=== PATIENT | male | born 1960 | race Caucasian/White ===

== ENCOUNTER 2023-05-30 12:40 | Emergency (ER) | payer MEDICARE, SELFPAY ==
[2023-05-30 12:41] VITALS: BP 150/78; PULSE 78; RESP 14; TEMP 36.4; O2SAT 98; BMI 25.2
--- NOTE | 2023-05-30 12:47 | CT_ITS ---
INDICATION: fall EXAMINATION: CT CERVICAL SPINE - CT Spine Cervical W/O Contrast Injection TECHNIQUE: Helically acquired images were obtained of the cervical spine. 2D reformatted images were reviewed. A radiation dose optimization technique was used for this scan. IV Contrast dosage and agent: None. RADIATION DOSAGE (If Supplied By Facility): CTDIvol = ( 27.56 ) mGy, DLP = ( 1040.6 ) mGycm COMPARISON: No relevant prior comparison study available FINDINGS: VERTEBRAE: No fracture or traumatic subluxation. No discrete lytic or blastic abnormality. Straightening of the cervical spine. Alignment of the vertebral bodies is unremarkable. Normal craniocervical junction and cervicothoracic junction. DISCS and SPINAL CANAL: Disc heights are preserved. No critical stenosis. NECK SOFT TISSUES: No prevertebral soft tissue swelling. Atherosclerotic calcifications of the carotid arteries. Partially visualized median sternotomy. LUNG APICES: Clear. CT/Spine Cervical without Contras IMPRESSION: 1. No evidence of acute cervical spinal fracture or spondylolisthesis. 2. Straightening of the cervical spine which could be due to muscle spasm. Electronically Signed: Edwin Santiago MD at 13:34 EDT ,
--- NOTE | 2023-05-30 12:47 | CT_ITS ---
INDICATION: fall EXAMINATION: CT BRAIN - CT Head or Brain W/O Contrast Injection TECHNIQUE: Multiple axial images were obtained of the head without intravenous contrast. A radiation dose optimization technique was used for this scan. IV Contrast dosage and agent: None. RADIATION DOSAGE (If Supplied By Facility): CTDIvol = ( 44.99 ) mGy, DLP = ( 762.36 ) mGycm COMPARISON: No relevant prior comparison study available FINDINGS: BRAIN PARENCHYMA: No intra- or extra-axial hemorrhage. No evidence of acute infarct. No intracranial mass or mass effect. There is preservation of the florence/white matter interface. Posterior fossa structures are unremarkable. Atherosclerotic calcifications of the cavernous internal carotid arteries. CSF SPACES: Mild atrophy. No hydrocephalus. Basal cisterns are patent. CALVARIUM, SKULL BASE, PARANASAL SINUSES AND MASTOID AIR CELLS: Clear. Small sclerotic lesion in the anterior clivus likely due to bone island. ORBITS: Both globes, extraocular muscles, optic nerves and retrobulbar fat appear unremarkable. CT/Brain/Head without Contrast IMPRESSION: No acute intracranial process. Electronically Signed: Edwin Santiago MD at 13:27 EDT ,
--- NOTE | 2023-05-30 13:30 | EX.ED.GENINJ ---
HPI History of Present Illness Chief Complaint: Head Injury Informant: patient Narrative Narrative: Presents by private vehicle fall out of a tree shortly prior to arrival. He was picking apples, 5 to 6 foot up, falling down into the bed of his truck. His head on the propane tank. No loss of consciousness. Reports headache however no nausea or vomiting. Denies any anticoagulation medicines. Last tetanus was a year ago. Mild neck pain. No extremity pain. He ambulated in department. No chest pains or shortness of breath. Tetanus Immunization: <5 years PFSH PFS Allergy/AdvReac Type Severity Reaction Status Date / Time No Known Allergies Allergy Verified 05/30/23 12:47 Social History Smoking Status: Never smoker ROS ROS ED Constitutional Constitutional ED: Denies chills, fever(s) or sweats Eyes Eyes: Denies change in vision ENT ENT ED: Denies dysphagia or sore throat Cardiovascular Cardiovascular: Denies chest pain, leg edema, palpitations or racing heartbeat Respiratory/Chest Respiratory/Chest: Denies cough, dyspnea or dyspnea on exertion Gastrointestinal Gastrointestinal: Denies abdominal pain, diarrhea, nausea or vomiting Genitourinary Genitourinary ED: Denies dysuria, hematuria or urinary frequency Musculoskeletal Musculoskeletal: Reports neck pain; Denies back pain or extremity pain Integumentary Reports wounds; Denies rash Neurologic Neurologic: Reports headache(s); Denies paresthesias or weakness EXAM Physical Exam Const Vital Signs: 05/30/23 12:41 05/30/23 13:53 05/30/23 14:00 Temperature 97.6 F L Temperature Source Temporal Pulse Rate 78 Respiratory Rate 14 18 Respiratory Effort Normal Non-Labored Respiratory Depth Normal Respiratory Pattern Normal Blood Pressure 150/78 H Blood Pressure Mean 102 Pulse Ox 98 97 Oxygen Delivery Method Room Air Room Air 05/30/23 15:00 Temperature Temperature Source Pulse Rate Respiratory Rate 18 Respiratory Effort Respiratory Depth Respiratory Pattern Blood Pressure Blood Pressure Mean Pulse Ox Oxygen Delivery Method Positive well nourished and well developed Constitutional Narrative: GCS 15, c-collar placed in triage dressing to the scalp. General Appearance ED: well developed and NAD HEENT Reports moist mucous membranes HEENT Narrative: Stellate laceration 4 cm x 2 cm noted posterior scalp, no active bleeding. No hemotympanum. normocephalic Eyes PERRL, EOMs intact bilaterally and conjunctivae normal General Eye ED: Yes normal appearance of both eyes Neck no lymphadenopathy and supple Neck Narrative: C-collar, mild midline tenderness mid C-spine no step-offs. General: Negative for tenderness Chest Wall inspection of chest normal and palpation of chest normal Chest: Negative for tenderness Resp normal respiratory effort and normal air movement Resp Narrative: Symmetric breath sounds. Effort and Inspection: symmetric chest movement; Negative for respiratory distress Cardio regular rate, regular rhythm and no murmurs Peripheral Pulses: pulses 2+ throughout GI normal to inspection, nondistended, normoactive bowel sounds and non-tender Palpation: Negative for guarding or rebound tenderness present Back/Spine no CVA tenderness Back/Spine Narrative: Superficial abrasion to the mid back skin was intact. No step-offs. Extremity normal to inspection General Extremety ED: Negative for edema or tenderness General Extremity: Negative for edema Neuro oriented x3, CN's II-XII intact bilaterally and no sensory deficits noted Sensorium / Orientation: awake and alert Skin no rashes or lesions noted and no wounds MDM MDM MDM Narrative Medical decision making narrative: Interventions / MDM: Differential diagnosis: Closed head injury, concussion, scalp laceration. Diagnosis considered but do not suspect: Intracranial hemorrhage/fracture however images are negative. My EKG interpretation: N/A Imaging independently reviewed and interpreted by myself: CT head and neck: No fracture, no intracranial hemorrhage. External documents reviewed: N/A Test considered but not ordered:N/A ED course: Mechanical fall with head injury. No focal deficits. Trauma scans head and neck were ordered patient maintained in c-collar. Trauma scans were negative c-collar cleared. Laceration was repaired, wound care discussed. Discussed using Tylenol as needed 1 dose was given in the ED. Outpatient follow-up with his PCP for which he states is getting established Dr. Brar. Patient ambulating in the department no difficulties. Return precautions. All questions were answered. Procedure note: Verbal consent. Normal sterile conditions. 3 cc 1% lidocaine used for local analgesia scalp. Due to stellate laceration, corner stitch was initially placed in the middle using 4-0 nylon sutures. Additional quarter stitch was required due to being pulled through. Additional 5 simple interrupted sutures placed with good approximation of the wound. Total of 7 sutures were placed. Hemostasis achieved. Patient tolerated the procedure well. Re-evaluation: stable Disposition discussed with patient/family/significant other: Patient Case discussed with consulting clinician: N/A This note was generated with [employer] dictation software. It may contain incorrect words, spelling, and punctuation that were not noted in checking the note before signing. Radiography Diagnostic Testing: Clinical Impression(s) from Imaging Studies Brain CT 05/30/23 12:47 IMPRESSION: No acute intracranial process. Electronically Signed: Edwin Santiago MD at 13:27 EDT , Cervical Spine CT 05/30/23 12:47 IMPRESSION: 1. No evidence of acute cervical spinal fracture or spondylolisthesis. 2. Straightening of the cervical spine which could be due to muscle spasm. Electronically Signed: Edwin Santiago MD at 13:34 EDT , Discharge Plan Triage Chief Complaint: Head Injury ED Provider: Kael Ojeda Dx/Rx/DC Orders Clinical Impression: Closed head injury, Fall, Laceration of scalp Instructions: ED Head Injury (Adult), ED Laceration Scalp Stitches or [place] Primary Care Provider: Care Physician,No Primary Referrals: Deepika Brar, DO [Non-Staff] - 10-14 Days suture removal Care Physician,No Primary [Primary Care Provider] - Activity Restrictions/Additional Instructions: CT head and neck negative. Total of 7 sutures were placed to your scalp, 2 in the middle were corner sutures. Wound care as discussed. Follow-up in 10 to 14 days for reevaluation and suture removal. Disposition Disposition: Home, Self Care Discharge Date/Time: 05/30/23 15:11
[2023-05-30] MEDS: Acetaminophen 500 MG Tablet 1000 MG PO (13:35)
[2023-05-30] MEDS: Lidocaine 1% (20 ml mdv) 20 ML Vial INFILT (13:35)
[2023-05-30 13:53] VITALS: O2SAT 97
[2023-05-30 14:00] VITALS: RESP 18
[2023-05-30 15:00] VITALS: RESP 18
== END 2023-05-30 15:11 | disposition home or self-care (01) ==
PROVIDERS: Emergency Provider Emergency Medicine; Visit Provider Emergency Medicine
DX: S01.01XA Laceration without foreign body of scalp, initial encounter (principal); W14.XXXA Fall from tree, initial encounter; Y93.89 Activity, other specified
CPT/HCPCS: 12002; 70450; 72125; 99282

== ENCOUNTER → 2024-12-16 | Outpatient (CLI) | payer MEDICARE, SELFPAY ==
--- NOTE | 2024-12-16 15:09 | RAD_ITS ---
PROCEDURE: CHEST PA AND LATERAL 12/16/2024 REASON FOR EXAM: CAD TECHNIQUE: Frontal and lateral views of the chest. COMPARISON: None. FINDINGS: The heart is normal in size. 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 There is no pneumothorax. There is pulmonary nodules present measuring up to 3-4 mm within the right midlung zone. There are no acute osseous abnormalities present. RAD/Chest PA and Lateral IMPRESSION: 3-4 mm nodule seen within the right midlung zone. No evidence of pneumothorax. Reading Location: [id number]
== END | disposition home or self-care (01) ==
PROVIDERS: PCP Family Medicine; Referring Provider Internal Medicine Cardiovascular Disease; Visit Provider Internal Medicine Cardiovascular Disease
DX: Z95.1 Presence of aortocoronary bypass graft (principal)
CPT/HCPCS: 71046

== ENCOUNTER → 2024-12-31 | Outpatient (CLI) | payer MEDICARE, SELFPAY ==
--- NOTE | 2024-12-31 18:37 | CT_ITS ---
PROCEDURE: CHEST WITHOUT CONTRAST 01/01/2025 REASON FOR EXAM: ABNORMAL CHEST XRAY TECHNIQUE: Chest CT without contrast. Coronal and Sagittal reconstruction series were provided. One or more dose reduction techniques were used (e.g., Automated exposure control, adjustment of the mA and/or kV according to patient size, use of iterative reconstruction technique RADIATION DOSE SUMMARY: CTDlvol: mGy DLP: mGycm COMPARISON: 12-16-2024 CR FINDINGS: Calcified right pulmonary nodules and right hilar lymph nodes, possibly granulomatous. No obvious pulmonary masses, consolidations or cavitary changes. The heart size is within normal. Vascular atheromatous calcifications. Sternotomy suture wires. No pleural or pericardial effusion. No pathologically enlarged lymph nodes are noted. No definite mass lesion in the chest wall. Intact bony thoracic cage with no fractures or osseous destruction. The examined vertebrae showing preserved height with no fracture of dislocation. Mild thoracic spondylosis. Scanned upper abdomen show liver cirrhosis, splenomegaly and gall bladder small calculi. CT/Chest without Contrast IMPRESSION: Calcified right pulmonary nodules and right hilar lymph nodes, possibly granulo matous. No obvious pulmonary masses, consolidations or cavitary changes. Reading Location: [facility]
== END | disposition home or self-care (01) ==
PROVIDERS: PCP Family Medicine; Referring Provider Physician Assistant Medical; Visit Provider Physician Assistant Medical
DX: R93.89 Abnormal findings on diagnostic imaging of other specified body structures (principal); Z95.1 Presence of aortocoronary bypass graft
CPT/HCPCS: 71250